=== PATIENT | male | born 1965 | race Caucasian/White ===

== ENCOUNTER 2016-10-24 15:26 | Emergency (ER) | payer OTHER ==
--- NOTE | ~2016-10-24 | CR230 ---
[facility]. [facility] A Service of [facility] RADIOLOGY TEXT RESULTS PATIENT: JOLANTA HURTADO LOCATION: SED : 61 UNIT #: [id number] AGE: [address]: Prabhjot Gill MD SEX: M ORDER DR: [id number] [address] [id number] E MR#: [id number] Acc #: [id number] NAME: JOLANTA HURTADO : 1965 SEX: M STUDY DATE/TIME: 10/24/2016 14:47 UNIT: SED ROOM: STUDY DESCRIPTION: CR Shoulder Min 2 View Rt Attending Physician: Prabhjot Gill M.D. Ordering Physician: Prabhjot Gill M.D. Primary Care Physician: Chandana Calderon M.D. MEDICAL IMAGING REPORT This report is preliminary unless electronic signature is present. EXAM Right shoulder series 10/24/2016 HISTORY Pain. Shoulder popped out shoulder surgery May 14 popped out pain. Symptoms began today. FINDINGS AP internal and external rotation views of the right shoulder presented with a transscapular view. No prior postoperative shoulder images for comparison. The patient is status post right shoulder arthroplasty. There is superolateral dislocation of the humeral component relative to the glenoid component. On the transscapular view there are linear calcifications along the posterior aspect of the humeral neck which may represent a small cortical fracture fragments. The more distal of these measures up to about 1.3 cm in length and the more proximal measures about 1.2 cm in length. Reassessment after arthroplasty relocation recommended. No other potential fractures are seen. The acromioclavicular relationship is normal. The orthopedic hardware itself appears intact without evidence of loosening. Visualized bony thorax unremarkable. The right lung shows healed granulomatous disease but no acute pulmonary disease. Incidental note is made of right carotid calcifications. The periarticular soft tissues show no soft tissue defect, subcutaneous air or radiodense foreign body. Dictated by... Yousif Fischer M.D. THIS IS AN ELECTRONICALLY VERIFIED REPORT Yousif Fischer M.D. at 10/25/2016 5:13 PM [facility] A Service of [facility] RADIOLOGY TEXT RESULTS PATIENT: JOLANTA HURTADO LOCATION: SED : 61 UNIT #: [id number] AGE: [address]: Prabhjot Gill MD SEX: M ORDER DR: BUCK/renee TD: 10/24/2016 18:19 JOB #: [id number] MEDICAL IMAGING REPORT Page 1 of 1
[~2016-10-24 15:26] MED LIST: BACTRIM DS TABL1 TA2 PO; BENZONATATE PO; CORTISPORIN-TC10 ML; LISINOPRIL PO; LORTAB 7.5-5001 TAB PO; PERCOCET; PERCOCET5/325 PO; PHENERGAN PO; PHENERGAN25 M1 PO; PROZAC PO; PROZAC40 MG PO; ROBAXIN; TRAMADOL HCL50 M1 PO; ULTRAM PO; VOLTAREN75 MG PO; ZOCOR PO
== END 2016-10-24 16:05 | disposition home or self-care (01) ==
LOC: SED 15:26
DX: T84.028A Dislocation of other internal joint prosthesis, initial encounter (principal); Z88.0 Allergy status to penicillin; X58.XXXA Exposure to other specified factors, initial encounter; Y92.9 Unspecified place or not applicable; F17.200 Nicotine dependence, unspecified, uncomplicated
CPT/HCPCS: 73030; 99283

== ENCOUNTER 2016-10-31 12:43 | Emergency (ER) | payer OTHER | END 2016-10-31 12:55 | disposition home or self-care (01) | LOC: SED 12:43 | DX: S46.011A Strain of muscle(s) and tendon(s) of the rotator cuff of right shoulder, initial encounter (principal); F31.9 Bipolar disorder, unspecified; F17.200 Nicotine dependence, unspecified, uncomplicated; X58.XXXA Exposure to other specified factors, initial encounter; Y92.009 Unspecified place in unspecified non-institutional (private) residence as the place of occurrence of the external cause | CPT/HCPCS: 99283 ==

== ENCOUNTER → 2017-01-18 | Outpatient (CLI) | payer OTHER ==
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
== END | disposition home or self-care (01) ==
LOC: SRAD 09:06
DX: M51.36 Other intervertebral disc degeneration, lumbar region (principal)
CPT/HCPCS: 72120